=== PATIENT | female | born 1990 | race Caucasian/White ===

== ENCOUNTER 2023-02-12 21:13 | Emergency (ER) | payer OTHER ==
[2023-02-12 21:22] VITALS: BP 145/94
[2023-02-12] MEDS ORDERED: AMOX/CLAV 875 MG/125 MG TABLET PO STA (21:26)
--- NOTE | 2023-02-12 21:30 | ED Physician Documentation ---
PD HPI HEENT - Stated complaint Stated Complaint: RIGHT EAR PAIN - Chief complaint Chief Complaint: Heent - History obtained from History obtained from: Patient - Additional information Additional information: Right ear pain muffled with pain today. Recent sore throat and runny nose. No fevers. 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: Tubal ligation - Present Medications Home Medications: Ambulatory Orders Medication Instructions Recorded Confirmed Amox/Clav 875/125 [Augmentin] 1 each PO Q12H #20 tablet 02/12/23 - Allergies Allergies/Adverse Reactions: Allergies Allergy/AdvReac Type Severity Reaction Status Date / Time No Known Drug Allergies Allergy Verified 02/12/23 21:19 - Social History Does the pt smoke?: No Smoking Status: Never smoker Does the pt drink ETOH?: Yes Does the pt have substance abuse?: No - Immunizations Immunizations are current?: Yes - POLST Patient has POLST: No PD ED PE NORMAL - Vitals Vital signs reviewed: Yes - General General: Alert and oriented X 3, No acute distress - HEENT HEENT: Other (Severe right otitis media) - Neuro Neuro: Alert and oriented X 3, Normal speech Results - Vitals Vitals: Vital Signs - 24 hr 02/12/23 21:15 Temperature 36.4 C L Heart Rate 95 Respiratory 17 Rate Blood Pressure 145/94 H O2 Saturation 98 Oxygen O2 Source Room air Departure - Departure Disposition: 01 Home, Self Care Clinical Impression: ROM (right otitis media) Condition: Good Record reviewed to determine appropriate education?: Yes Instructions: ED Otitis Media Acute Adult Prescriptions: Amox/Clav 875/125 [Augmentin] 1 each PO Q12H #20 tablet Comments: Drink plenty of fluids and you can use Sudafed [id number] as discussed. Tylenol and/or ibuprofen as needed for pain. Return for new or worsening symptoms. Follow-up with your doctor in a week if not better or if you have symptoms of perforation as we discussed.
== END 2023-02-12 21:40 | disposition home or self-care (01) ==
LOC: ED 21:13
DX: H66.91 Otitis media, unspecified, right ear (principal)
CPT/HCPCS: 99282; 99283; A9270